=== PATIENT | female | born 2000 | race Caucasian/White ===

== ENCOUNTER 2022-02-13 11:33 | Outpatient (CLI) | payer OTHER, SELFPAY ==
--- NOTE | ~2022-02-13 | US_ITS ---
EXAMINATION: US pelvic complete w TV DATE: 02/13/2022 12:21 INDICATION: Pelvic and perineal pain TECHNIQUE: Multiple transabdominal and endovaginal sonographic images of the pelvis were obtained. COMPARISON: None. FINDINGS: The uterus measures 7.6 x 4.8 x 3.3 cm. The endometrial complex measures 4 mm. There is in expected position. The right ovary measures 3.0 x 1.9 x 1.6 cm. The left ovary measures 2.0 x 1.8 x 1 .3 cm. There is normal vascular flow in the ovaries. There is no free fluid in the pelvis. IMPRESSION: 1. No sonographic correlate for the patient's symptoms. Reviewed, dictated and finalized at location A.
== END 2022-02-13 11:34 | disposition home or self-care (01) ==
LOC: ANHIMG 11:34
PROVIDERS: PCP Pediatrics; Visit Provider Obstetrics & Gynecology
DX: R10.2 Pelvic and perineal pain (principal)
CPT/HCPCS: 76830; 76856

== ENCOUNTER 2023-01-16 14:39 | Emergency (ER) | payer OTHER, SELFPAY ==
--- NOTE | ~2023-01-16 | XR_ITS ---
EXAMINATION: XR foot RT min 3V DATE: 01/16/2023 15:39 INDICATION: Right heel pain. Fall. TECHNIQUE: 4 views of right foot were obtained. COMPARISON: None. FINDINGS: There is moderate hallux valgus. No fracture. Joint spaces are normal. IMPRESSION: 1. Moderate hallux valgus. Reviewed, dictated and finalized at location A. IMPRESSION: 1. Moderate hallux valgus.
[2023-01-16 14:40] VITALS: BP 115/85; PULSE 111; RESP 16; TEMP 36.9; O2SAT 100
--- NOTE | 2023-01-16 15:54 | ED.GENADULT ---
HPI - General Adult General Chief complaint: Extremity Injury, Lower Stated complaint: right broken foot Time Seen by Provider: 01/16/23 14:40 Source: RN notes reviewed History of Present Illness HPI narrative: Patient presents emergency department from home for right foot pain. Patient states that 2 days ago she was walking on stairs at work and tripped injuring her right foot she states she fell down several stairs but did not injure anywhere else. States that following this she had gone to an [facility] and had an x-ray of her ankle done that showed a avulsion fracture of her navicular. Patient does have a copy of the x-ray report with her as well as the x-ray. She states no other injuries were seen. She was not given any crutches or postop shoe and has been taking as needed Aleve at home with minimal relief with last dose this morning. Denies any numbness or tingling of the foot Related Data Home Medications Medication Instructions Recorded Confirmed levonorgestrel 14 mcg/24 hrs (3 1 device intrauterine ONCE 02/13/22 09/03/22 yrs) 13.5 mg intrauterine device (Moises) Allergies Allergy/AdvReac Type Severity Reaction Status Date / Time No Known Allergies Allergy Mild Unverified 09/03/22 08:59 Review of Systems Review of Systems: Gen.: Denies fevers or chills Musculoskeletal: See HPI Neuro: Denies numbness, tingling, weakness Skin: Denies rash Endo: Denies DM PMFSH Past Medical History Medical History Encounter for IUD insertion moises insertion 03/18/2021 Pubertal menorrhagia Family History Family History Other Lung cancer Social History Social History Smoking status: Never smoker Alcohol intake: never Substance use: never Living arrangements: with family Occupation/Education: occupation Additional occupation/education comments: Pt urgent care Gender identity (if verbalized by the patient): Female Exam Narrative: APPEARANCE: No acute distress, nontoxic, resting in bed Eyes: EOMI HEENT: Normocephalic, atraumatic, RESPIRATORY: No respiratory distress MUSCULOSKELETAl: Tender palpation of the right dorsal foot with no swelling or ecchymosis noted as well as mild tenderness over the base of the third fourth and fifth toes. The ankle is nontender to palpation dorsalis pedis pulse 2+ neurovascularly intact no tenderness of the proximal fibula NEURO: Awake and alert. Following commands, speech normal, no focal deficits SKIN:: Warm, dry. Normal Color no rash or lesions Course Course Emergency Course: Patient pulled up x-ray result from outpatient x-ray center and reviewed patient does have a avulsion fracture of the navicula no other fractures were seen this was an x-ray of the ankle and no ankle fracture seen Discussed with patient results of workup and diagnosis. Discussed need for follow-up with primary care, proper use of medication, and reasons to return to the emergency department. Patient understands and agrees to current treatment plan Vital Signs Vital signs: Vital Signs Temperature 98.5 F 01/16/23 14:40 Pulse Rate 111 H 01/16/23 14:40 Respiratory Rate 16 01/16/23 14:40 Blood Pressure 115/85 01/16/23 14:40 Pulse Oximetry 100 01/16/23 14:40 Oxygen Delivery Room Air 01/16/23 14:40 Temperature 98.5 F 01/16/23 14:40 Pulse Rate 111 H 01/16/23 14:40 Respiratory Rate 16 01/16/23 14:40 Blood Pressure 115/85 01/16/23 14:40 Pulse Oximetry 100 01/16/23 14:40 Oxygen Delivery Room Air 01/16/23 14:40 Medical Decision Making [facility] Narrative Medical decision making narrative: Patient presents for right foot pain from a fall 2 days ago x-rays from outpatient center shows a navicular avulsion fracture. This were x-rays of the ankle x-rays of the foot were taken here with no other ac
[2023-01-16] MEDS: IBUPROFEN 600 MG TABLET PO (16:04)
== END 2023-01-16 16:08 | disposition home or self-care (01) ==
PROVIDERS: Emergency Provider Emergency Medicine; PCP Pediatrics
DX: S92.251A Displaced fracture of navicular [scaphoid] of right foot, initial encounter for closed fracture (principal); Z97.5 Presence of (intrauterine) contraceptive device; M20.11 Hallux valgus (acquired), right foot; W10.9XXA Fall (on) (from) unspecified stairs and steps, initial encounter
CPT/HCPCS: 73630; 99284; A9270